=== PATIENT | female | born 1990 | race Caucasian/White ===

== ENCOUNTER 2023-08-08 08:57 | Emergency (ER) | payer BC, SELFPAY ==
[2023-08-08] VITALS (18 sets, daily range): BP systolic 100–117; BP diastolic 61–93; PULSE 77–107; RESP 16; TEMP 36.2; O2SAT 98–100
--- NOTE | ~2023-08-08 | CT_ITS ---
EXAMINATION: CT abdomen pelvis w con DATE: 08/08/2023 10:38 INDICATION: Epigastric abdominal pain for months TECHNIQUE: Computed tomography (CT) of the abdomen and pelvis was performed with 100 CC Omnipaque 350 intravenous contrast. Automated exposure control and iterative reconstruction technique were employe d. Exam dose: 409.99 mGy-cm total exam DLP. COMPARISON: None. FINDINGS: Minimal bilateral lower lobe dependent atelectasis. The lung bases are clear of infiltrate or consolidation. Normal heart size. No pericardial or pleural effusion. The liver, gallbladder, bile ducts, pancreas, pancreatic duct, spleen, adrenal glands and kidneys phuong ear normal. Normal caliber of the abdominal aorta. No intraperitoneal or retroperitoneal or pelvic mass lesion or adenopathy or ascites is noted. The urinary bladder is unremarkable. There are fluid containing small bowel segments and air-fluid levels of the small and large bowel, wi thout small or large bowel dilatation or bowel wall thickening, pneumatosis or intraperitoneal free a ir. The findings suggest enterocolitis. Small bowel intussusception is noted in the left mid abdomen which may be an incidental finding. Small fat-containing umbilical hernia. Included skeletal structures are unremarkable. IMPRESSION: Fluid levels of small bowel and large bowel suggesting enterocolitis Probable incidental small bowel intussusception Reviewed, dictated and finalized at [facility]. Reviewed, dictated and finalized at [facility]. [facility]IC[facility] IMPRESSION: Fluid levels of small bowel and large bowel suggesting enterocolit is Probable incidental small bowel intussusception
--- NOTE | 2023-08-08 09:15 | ED.GENADULT ---
[facility] - General Adult General Chief complaint: Abdominal Pain Stated complaint: ABD PAIN X MONTHS Time Seen by Provider: 08/08/23 09:02 Source: patient Mode of arrival: ambulatory Limitations: no limitations History of Present Illness HPI narrative: This is a 33-year-old female who presents to the ED with chief complaint of epigastric abdominal pain ongoing for the last several months. Reports the pain has been intermittent and usually a stabbing pain. Today she states she came to the ER because it turned into a burning pain. Reports 7 out of 10 pain. States everything makes it worse. No specific food association. Reports a week of loose stools and feeling nauseous this morning. Denies fevers, chills, urinary problems, chest pain, shortness of breath, cough. Related Data Allergies Allergy/AdvReac Type Severity Reaction Status Date / Time azithromycin Allergy Mild Rash Verified 08/08/23 11:24 Cephalosporins Allergy Mild Rash Verified 08/08/23 11:24 Review of Systems Review of Systems: All systems as dictated in [facility] Past Medical History Medical History (Updated 08/08/23 @ 14:05 by Antoine Calle PA-C) Endometriosis Surgical History Surgical History History of appendectomy 06/07/12 endometriosis found as well--pelvis, uterus and rt ovary History of surgery on wrist cyst removed on Right wrist as child [place] teeth extracted Family History Family History Other Unknown family medical history Social History Social History (Updated 11/25/21 @ 09:47 by HANNY Alonso) Smoking status: Never smoker Alcohol intake: current Drinks per week: 1 Substance use: never Substance use type: does not use Living arrangements: with family Additional living arrangements comments: parents Occupation/Education: occupation 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 HEAD: Normocephalic, atraumatic. EYES: PERRLA and EOMI. ENT: Nares clear, no rhinorrhea or epistaxis. Mucous membranes moist. Oropharynx without tonsillar hypertrophy exudate or other lesions. NECK: Supple. No adenopathy or masses. CHEST: No respiratory distress. Clear to auscultation. No wheezes rales or rhonchi HEART: Regular rate and rhythm. No murmur heard. Normal peripheral pulses. ABDOMEN: Mild epigastric tenderness. Soft, otherwise nontender, nondistended, normal active bowel sounds. MSK: Normal range of motion. No edema. SKIN: Warm, dry, no rash. NEURO: Alert and oriented x3. No focal deficits. PSYCH: Normal mood and affect. Course Vital Signs Vital signs: Vital Signs Temperature 97.2 F L 08/08/23 08:58 Pulse Rate 107 H 08/08/23 08:58 Respiratory Rate 16 08/08/23 08:58 Blood Pressure 100/61 08/08/23 08:58 Pulse Oximetry 100 08/08/23 08:58 Temperature 97.2 F L 08/08/23 08:58 Pulse Rate 77 08/08/23 14:26 Respiratory Rate 16 08/08/23 14:26 Blood Pressure 101/72 08/08/23 14:26 Pulse Oximetry 100 08/08/23 14:26 Medical Decision Making MDM Narrative Medical decision making narrative: This is a 33-year-old female who presents to the ED with chief complaint of epigastric abdominal pain for the past several months. Vitals are normal. Exam is largely benign, little bit of mild epigastric tenderness. Low concern for acute abdomen. Lab work shows normal white count with a grossly normal CBC. CMP reveals slightly elevated AST and ALT. Urinalysis shows 2+ ketones, 2+ leuks, 4+ bacteria and greater than [address] abdomen pelvis with IV contrast: Fluid levels of small bowel and large bowel suggesting enterocolitis Prob
[2023-08-08] MEDS: ONDANSETRON INJ 4 MG/2 ML VIAL IV PUSH (09:25)
[2023-08-08] MEDS: MORPHINE SULFATE (*CRX) 4 MG/ML INJ IV PUSH (09:25)
[2023-08-08 09:47] LABS: Basophils Percent Auto 0.6 % (0.2-1.2); Eosinophils Percent Auto 0.3 % (0-4.4); Hematocrit 42.7 % (37.0-47.0); Hemoglobin 13.8 g/dL (12.0-15.0); Immature Granulocyte Absolute 0.03 K/mm3 (0.00-0.031); Immature Granulocyte Percent A 0.5 % (0-0.5); Lymphocytes Absolute Auto 1.22 K/mm3 (0.9-3.2); Lymphocytes Percent Auto 19.4 % (18.3-44.2); Mean Corpuscular HGB Conc 32.3 g/dl (32-36); Mean Corpuscular Hemoglobin 29.4 pg (26-34); Mean Corpuscular Volume 90.9 fl (80-100); Mean Platelet Volume 10.3 fl (7.4-10.4); Monocytes Absolute Auto 0.7 K/mm3 (0.1-0.6); Monocytes Percent Auto 10.3 % (2.6-8.5); Neutrophils Absolute Auto 4.3 K/mm3 (1.3-6.7); Neutrophils Percent Auto 68.9 % (45.5-73.1); Platelet Count Result 226 k/mm3 (150-375); Red Cell Distribution Width 13.7 % (11.5-14.5); White Blood Count 6.3 K/mm3 (4.5-10.0)
[2023-08-08 10:06] LABS: Alanine Aminotransferase 117 U/L (6-35); Albumin Level 4.5 g/dL (3.5-5.1); Alkaline Phosphatase 47 U/L (38-126); Aspartate Amino Transferase 81 U/L (14-36); Bilirubin,Total 0.9 mg/dL (0.2-1.3); Blood Urea Nitrogen 14 mg/dL (7-17); Calcium 8.8 mg/dL (8.4-10.2); Carbon Dioxide 19 mmol/L (22-30); Chloride 104 mmol/L (98-107); Estimated CRCL calculation 78 ml/min; Estimated Glomerular Filt Rate > 60; Glucose 86 mg/dL (65-110); Lipase 95 U/L (23-300); Potassium 3.7 mmol/L (3.4-5.0)
[2023-08-08 10:10] LABS: Anion Gap 15 mmol/L (8-16); Sodium 138 mmol/L (137-145)
[2023-08-08] MEDS: diphenhydrAMINE HCl INJ 50 MG/ML VIAL 25 MG IV PUSH (10:14)
[2023-08-08 10:22] LABS: Appearance Urine Turbid (Clear); Bacteria Urine 4+ /hpf; Bilirubin Urine 1+ (Negative); Blood Urine Negative (Negative); Color Urine Dark Yellow (Yellow); Glucose Urine UA Negative (Negative); Ketones Urine 2+ mg/dL (Negative); Leukocyte Esterase Ur 2+ LEU/UL (Negative); Mucus Urine Present /lpf; Need Manual Microscopic Need Manual; Nitrate Urine Negative (Negative); Protein Urine 1+ mg/dL (Negative); Specific Grav Ur 1.023 (1.001-1.035); Squamous Epithelial Cell Urine Many /hpf (Few); WBC Urine >100 /hpf; pH Urine 5.5 (5.0-9.0)
[2023-08-08 10:43] LABS: Add Urine Microscopic? YES
[2023-08-08] MEDS: levoFLOXacin 750 MG/D5W 150 ML 750 MG/150 ML BAG 100 MG IVPB (11:24)
[2023-08-08] MEDS: SODIUM CHLORIDE 0.9% IV 1,000 ML 999 ML IV CONT (11:25)
--- NOTE | 2023-08-08 16:16 | PM.CNGS ---
Assessment and Plan Assessment and plan (1) Enteric intussusception: Code(s): K56.1 - Intussusception Status: Acute Assessment and Plan: this is likely an incidental finding on CT, reviewed with Radiology which agrees likely incidental, no bowel dilation to suggest symptomatic intussusception (2) Abdominal pain: Code(s): R10.9 - Unspecified abdominal pain Status: Acute Assessment and Plan: from history seems biliary in nature, pain controlled at this time, recommend outpatient ultrasound and HIDA scan, follow-up with me as outpatient History of Present Illness Consult details Consult date: 08/08/23 Reason for consult: abdominal pain Requesting physician: Antoine Calle PA-C Narrative: The patient is a 33-year-old female presenting to the emergency department complaining of severe epigastric abdominal pain. Patient reports that the pain has been progressively worsening for months. The patient reports that the pain is intermittent and seemingly caused by certain foods. The patient reports initially after changing her diet that the pain was more controlled, however now has again become frequent and severe. Patient reports occasional nausea, bloating, diarrhea. Review of Systems Review of Systems: All systems reviewed & are unremarkable except as noted in HPI and below PMFSH Past Medical History Medical History Endometriosis Surgical History Surgical History History of appendectomy 06/07/12 endometriosis found as well--pelvis, uterus and rt ovary History of surgery on wrist cyst removed on Right wrist as child [place] teeth extracted Family History Family History Other Unknown family medical history Social History Social History Smoking status: Never smoker Alcohol intake: current Drinks per week: 1 Substance use: never Substance use type: does not use Living arrangements: with family Additional living arrangements comments: parents Occupation/Education: occupation 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 Gender identity (if verbalized by the patient): Female Sexual Orientation (if Verbalized by the Patient): Lesbian, Wilkerson, or Homosexual Meds Home Medications and Allergies Home Medications Medication Instructions Recorded Confirmed Type levonorgestrel 0.15 mg-ethinyl 1 tablet PO DAILY #91 ea 02/10/22 Rx estradiol 30 mcg tablets,3 mos pack(91) hydrocodone 5 mg-acetaminophen 325 1 tablet PO DAILY PRN pain #10 tabs 08/08/23 Rx mg tablet levofloxacin 500 mg tablet 500 mg PO DAILY 7 days #7 tabs 08/08/23 Rx omeprazole 40 mg capsule,delayed 40 mg PO DAILY #30 caps 08/08/23 Rx release ondansetron 4 mg disintegrating 4 mg PO Q8H PRN nausea and 08/08/23 Rx tablet vomiting #10 tabs Allergies Allergy/AdvReac Type Severity Reaction Status Date / Time azithromycin Allergy Mild Rash Verified 08/08/23 11:24 Cephalosporins Allergy Mild Rash Verified 08/08/23 11:24 Vital Signs Vital Signs - 24 hr 08/08/23 08:58 08/08/23 09:09 08/08/23 09:16 Temperature 36.2 C L Pulse Rate 107 H Respiratory Rate 16 Blood Pressure 100/61 117/93 H 108/70 Pulse Oximetry 100 100 100 08/08/23 09:29 08/08/23 10:01 08/08/23 10:40 Temperature Pulse Rate Respiratory Rate Blood Pressure 111/77 106/77 Pulse Oximetry 98 98 100 08/08/23 10:45 08/08/23 11:00 08/08/23 11:15 Temperature Pulse Rate Respiratory Rate Blood Pressure Pulse Oximetry 100 100 98 08/08/23 11:30 08/08/23 11:45 08/08/23 12:05 Temperature Pulse Rate Respiratory Rate Blood Pressure Pulse Oximetry 99 100 100 08/08/23 12:15 08/08/23 12:32 08/08/23 12:45 Temperature Pulse Rate Respir
== END 2023-08-08 14:28 | disposition home or self-care (01) ==
PROVIDERS: Emergency Provider Physician Assistant
DX: R10.13 Epigastric pain (principal); K56.1 Intussusception; N80.9 Endometriosis, unspecified
CPT/HCPCS: 36415; 74177; 80053; 81001; 81025; 83690; 85025; 87086; 87088; 96365; 96375; 99284; J1200; J1956; J2270; J2405; J7030; Q9967